=== PATIENT | female | born 1945 | race Native Hawaiian/Other Pacific Islander ===

== ENCOUNTER 2020-09-17 13:41 | Outpatient (CLI) | payer OTHER ==
[2020-09-17 14:25] LABS: PLATELET COUNT 252 K/uL (152-353)
== END 2020-09-17 22:24 | disposition home or self-care (01) ==
LOC: LAB 13:41
PROVIDERS: ATTEND Internal Medicine
DX: M19.90 Unspecified osteoarthritis, unspecified site (principal); E03.8 Other specified hypothyroidism; R82.998 Other abnormal findings in urine
CPT/HCPCS: 80053; 80061; 81000; 82306; 84439; 84443; 85027; 87086; 87088

== ENCOUNTER 2020-10-21 09:12 | Outpatient (CLI) | payer OTHER | END 2020-10-21 19:22 | disposition home or self-care (01) | LOC: MAMMO 09:12 | PROVIDERS: ATTEND Internal Medicine | DX: N64.4 Mastodynia (principal) | CPT/HCPCS: G0279 ==

== ENCOUNTER 2020-11-09 13:19 | Outpatient (CLI) | payer OTHER | END 2020-11-09 22:12 | disposition home or self-care (01) | LOC: US 13:19 | PROVIDERS: ATTEND Internal Medicine | DX: R92.8 Other abnormal and inconclusive findings on diagnostic imaging of breast (principal) ==

== ENCOUNTER 2020-11-19 15:49 | Emergency (ER) | payer OTHER ==
[~2020-11-19] VITALS: Ht 172.7 cm; Wt 85.7 kg
[2020-11-19 16:37] LABS: PLATELET COUNT 234 K/uL (152-353)
[2020-11-19 16:51] LABS: POTASSIUM 4.4 mmol/L (3.6-5.2)
[2020-11-19 20:10] VITALS: BP 129/69; TEMP 98.3
== END 2020-11-19 20:13 | disposition home or self-care (01) ==
LOC: ED 15:49
PROVIDERS: Family Medicine
DX: K59.09 Other constipation (principal); K58.9 Irritable bowel syndrome, unspecified
CPT/HCPCS: 36415; 80053; 81000; 82150; 83690; 84439; 84443; 85027; 99283

== ENCOUNTER 2020-11-26 13:32 | Emergency (ER) | payer OTHER ==
[~2020-11-26] VITALS: Ht 172.7 cm; Wt 84.4 kg
[2020-11-26 13:51] VITALS: TEMP 98.1
[2020-11-26 16:55] LABS: PLATELET COUNT 271 K/uL (152-353)
[2020-11-26 17:03] LABS: POTASSIUM 4.4 mmol/L (3.6-5.2)
[2020-11-26 19:00] VITALS: BP 155/78
== END 2020-11-26 19:00 | disposition home or self-care (01) ==
LOC: ED 13:32
PROVIDERS: Family Medicine
DX: K59.09 Other constipation (principal); K58.9 Irritable bowel syndrome, unspecified
CPT/HCPCS: 80053; 85027; 99283

== ENCOUNTER 2021-12-13 18:57 | Emergency (ER) | payer OTHER ==
[~2021-12-13] VITALS: Ht 172.7 cm; Wt 74.8 kg
[2021-12-13] MEDS ORDERED: LEVO-T175 MCG PO (19:14)
[2021-12-13 19:15] LABS: PLATELET COUNT 224 K/uL (152-353)
[2021-12-13 19:26] LABS: POTASSIUM 3.8 mmol/L (3.6-5.2)
[2021-12-13 19:36] LABS: PARTIAL THROMBOPLASTIN TIME 24.1 SECONDS (24.5-33.6)
[2021-12-13 21:08] VITALS: BP 136/66; TEMP 98.2
== END 2021-12-13 21:08 | disposition home or self-care (01) ==
LOC: ED 18:57
PROVIDERS: Hospitalist
DX: R00.2 Palpitations (principal); Z79.899 Other long term (current) drug therapy; Z51.81 Encounter for therapeutic drug level monitoring
CPT/HCPCS: 36415; 80053; 82550; 83880; 84443; 84484; 85027; 85610; 85730; 93005; 96360; 99284